=== PATIENT | male | born 1985 | race Caucasian/White ===

== ENCOUNTER 2023-10-07 12:00 | Emergency (ER) | payer SELFPAY ==
[2023-10-07 12:04] VITALS: BP 162/92; PULSE 73; RESP 18; TEMP 36; O2SAT 98
--- NOTE | 2023-10-07 12:17 | ED.GENADUL_ITS ---
Discharge Plan Disposition Patient Disposition: Home Condition: Stable Discharge Details Clinical Impression: Skin lesion, Penile lesion, Hemorrhoid Primary Care Provider: None,None ED Provider: Fernando Hastings Home Meds and New Rx's Prescriptions: New sulfamethoxazole-trimethoprim [Bactrim DS] 800-160 mg tablet 1 tab PO BID Qty: 14 0RF amoxicillin-pot clavulanate 875-125 mg tablet 1 tab PO BID Qty: 14 0RF Discharge Instructions Additional Instructions: Take the antibiotics as directed. You can use Preparation H or generic for your hemorrhoid and also sit in a warm bath for 15 to 20 minutes a few times a day. You can take 600 mg of ibuprofen and 1000 mg Tylenol every 6 hours as needed If you have feel more ill, have severe worsening pain, or new symptoms such as severe abdominal pain return to the emergency department Follow-up with your primary care provider or express care if not better within 1 to 2 weeks HPI General Mode of arrival: ambulatory . Date/Time Provider Initiated Documentation: 10/07/23 12:03 . Limitations to Documentation: no limitations . Information obtained by: patient . History of Present Illness 37 year old M presents to the emergency department with the chief complaint of Lesions on the skin, described as moderate, Patient started experiencing this day(s) (4) and it has been constant. No relieving factors improve symptom(s), No exacerbating factors reported . Patient notes no other symptoms.; denies fever/chills. Patient did receive the following treatments prior to arrival, none Related Data Home Medications Medication Instructions Recorded Confirmed amoxicillin 875 mg-potassium 1 tab PO BID #14 tabs 10/07/23 clavulanate 125 mg tablet sulfamethoxazole 800 1 tab PO BID #14 tabs 10/07/23 mg-trimethoprim 160 mg tablet (Bactrim DS) Previous Rx's Medication Instructions Recorded amoxicillin 875 mg-potassium 1 tab PO BID #14 tabs 10/07/23 clavulanate 125 mg tablet sulfamethoxazole 800 1 tab PO BID #14 tabs 10/07/23 mg-trimethoprim 160 mg tablet (Bactrim DS) Allergies Allergy/AdvReac Type Severity Reaction Status Date / Time acetaminophen Allergy Severe Anaphylaxis Verified 10/07/23 12:07 General Stated Complaint: Cellulitis SEAN: 3 Review of Systems All systems reviewed & are unremarkable except as noted in HPI and below Constitutional Constitutional: Denies chills, Denies fever(s) and Denies weakness Cardiovascular Cardiovascular: Denies chest pain and Denies dyspnea Respiratory Respiratory: Denies cough and Denies dyspnea Gastrointestinal Gastrointestinal: Denies abdominal pain, Denies nausea and Denies vomiting Integumentary/Breasts Skin/Breast: Reports rash Neurologic Neurologic: Denies weakness Exam Const General: no acute distress Orientation: alert HENMT Head: normal to inspection Ears: external ears normal General nose exam: external nose normal Mouth: moist mucous membranes Eyes General: appearance normal, both eyes and all related structures Neck Neck: normal visual inspection Resp Effort & Inspection: normal respiratory effort and able to speak in complete sentences Cardio Rate: regular rate Skin General skin exam: erythema Neuro General: patient alert and patient oriented x3 Extrem General: normal to inspection Psych Mental Status: mental status grossly normal Course Vital Signs Vital signs: Vital Signs Temperature 36.0 C L 10/07/23 12:04 Pulse 73 10/07/23 12:04 Respiratory Rate 18 10/07/23 12:04 Blood Pressure 162/92 H 10/07/23 12:04 Pulse Oximetry 98 10/07/23 12:04 Temperature 36.0 C L 10/07/23 12:04 Pulse 73 10/07/23 12:04 Respiratory Rate 18 10/07/23 12:04 Blood Pressure 162/92 H 10/07/23 12:04 Pulse Oximetry 98 10/07/23 12:04 Pain Level 6 10/07/23 12:04 Medical Decision Making 37-year-old male who denies any chronic medical problems and denies IV drug use, comes in with several days of lesions on his arms and legs. Denies any fevers or severe pain. He has multiple circular scabs on his arms and legs with mild 2 to 3 mm of surrounding erythema, no fluctuance, no crepitus no severe pain. The lesions appear likely due to skin picking the patient denies this. He appears well, doubt sepsis and do not feel any labs or imaging indicated. Will start him on Augmentin and Bactrim, advised to follow-up with primary care provider and return precautions given Patient requested to speak with me again. He states he is noticed to lump on the superior distal portion of his penis for about a week. Denies any discharge, not overly concerned with sexually transmitted diseases. He does h ave a mobile 1 mm nodule in the distal superior anterior penis, no fluctuance or erythema, no discharge from the penis no swelling. Will send RPR and also GC chlamydia testing. Advised to follow-up with his primary care provider advised he will receive a call if positive for any of the test done today Patient also now states he thinks he has a hemorrhoid, he had a lump in his rectum. On rectal exam he does have a 5 mm nonthrombosed hemorrhoid at the 9 o'clock position, no bleeding. Advised to use sitz bath and Preparation H and also to follow-up with his primary care provider Differential Diagnosis Differential Diagnosis: Skin picking, cellulitis Quality:SDOH Health Related Social Needs: No Data to Display PFSH All Active Problems (Updated 10/07/23 @ 12:30 by Fernando Hastings MD) Hemorrhoid (Acute) Penile lesion (Acute) Skin lesion (Acute) Social History Smoking/Tobacco Use Status: Current every day Tobacco Type: cigarettes Smoking risk assessment performed?: Yes Alcohol Intake: current Alcohol Intake frequency: holidays/special occasions only Drug use: Daily Substance use type: marijuana Housing: homeless
[2023-10-07] MEDS: Amoxicillin 875/Clav. 125 TAB PO (12:19)
[2023-10-07] MEDS: Sulfameth/Trimeth DS TAB 1 TAB PO (12:19)
[2023-10-08 10:23] LABS: Syphilis Serology (RPR) Negative (Negative)
[2023-10-09 14:24] LABS: Chlamydia Result Negative (Negative); GC Result Negative (Negative)
== END 2023-10-07 13:20 | disposition home or self-care (01) ==
LOC: ER 12:45
PROVIDERS: Emergency Provider Emergency Medicine
DX: L98.9 Disorder of the skin and subcutaneous tissue, unspecified (principal); N48.9 Disorder of penis, unspecified; K64.4 Residual hemorrhoidal skin tags; F17.210 Nicotine dependence, cigarettes, uncomplicated
CPT/HCPCS: 36415; 87491; 87591; 99283; 86592

== ENCOUNTER 2023-12-05 19:14 | Emergency (ER) | payer SELFPAY ==
[2023-12-05 19:14] VITALS: BP 178/96; PULSE 55; RESP 18; TEMP 36.6; O2SAT 99
--- NOTE | 2023-12-05 19:15 | DI.CT_ITS ---
Exam(s) CT HEAD FACIAL WO EXAM: CT HEAD FACIAL WO CLINICAL HISTORY: Facial injury Left eye. TECHNIQUE: Imaging Protocol: Axial computed tomography images with coronal and sagittal reformatted images were created and reviewed COMPARISON: No exams were available for comparison FINDINGS: CT Head: Ventricles and Extra axial spaces: Normal in size and morphology for the patient's age. Hemorrhage: None. Cerebral parenchyma: Normal. Midline shift: None. Brainstem/Cerebellum: Normal. Calvarium: Normal. Visualized Paranasal sinuses/Mastoids: Clear. Soft Tissues: Unremarkable. CT Face: Facial Bones: There is an acute depressed fracture of the left zygomatic arch. There is an angulate d mildly comminuted fracture of the lateral wall of the left orbit. It extends anteriorly to involve the superior lateral aspect of the orbital wall. There is an acute mildly displaced fracture of the lateral aspect of the left maxillary sinus. It extends superiorly to involve the orbital floor and anteriorly to involve the anterior wall. There is no depression of the orbital floor. No muscle ent rapment is seen. Sinuses and Mastoids: Small fluid levels are seen in the maxillary sinus sinuses bilaterally. There is mild mucosal thickening in the right maxillary sinus. The ethmoid air cells sphenoid sinuses and frontal sinuses are clear as are the mastoid air cells. Globes, extraocular muscles, optic nerves and retrobulbar fat: The globes, extraocular muscles and o ptic nerve appear unremarkable. There is a small amount of air in the retro-orbital fat. Upper aerodigestive tract: Normal. Mandible and bilateral temporomandibular joints: Normal. Soft tissues: There is left periorbital soft tissue swelling. IMPRESSION: 1. No acute intracranial process. 2. Fractures involving the left side medic arch. The fracture is mildly depressed. 3. Fractures involving the anterior and lateral carranza of the left maxilla with extension to involve t he floor of the left orbit which is not depressed. There is a fracture of the lateral orbital wall o n the left. There is no evidence of extraocular muscle entrapment. There is a small amount of air s een in the retro-orbital fat. 4. Left periorbital soft tissue swelling. RADIATION DOSE DELIVERED: 1,641.44mGy.cm Total DLP DATA REPOSITORY: All CT scans at this facility are submitted to the National Radiology Data Registry (NRDR) Dose Index Registry (DIR) with the [employer] (ACR). RADIATION OPTIMIZATION: All CT scans at this facility use at least one of these dose optimization te chniques: automated exposure control; mA and/or kV adjustment per patient size (includes targeted exa ms where dose is matched to clinical indication); or iterative reconstruction.
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
[2023-12-05] MEDS: Ibuprofen 800 MG TAB PO (19:26)
--- NOTE | 2023-12-05 20:02 | DI.VRAD_ITS ---
PROCEDURE INFORMATION: Exam: CT Head Without Contrast Exam date and time: 12/05/2023 7:35 PM Age: 37 years old Clinical indication: Other: Facial injury left eye TECHNIQUE: Imaging protocol: Computed tomography of the head without contrast. COMPARISON: No relevant prior studies available. FINDINGS: Brain: Cerebral sulci show bilateral symmetry with no supratentorial mass or mass effect detected. Brainstem and cerebellum are unremarkable. There is no evidence of acute transcortical infarction or recent intracranial hemorrhage. Cerebral ventricles: Ventricular and cisternal spaces are normal in size and configuration and there is no midline shift or hydrocephalus seen. Paranasal sinuses: Mucosal disease and layering fluid are seen along the margins of the right maxillary sinus with minimal fluid also seen along the posterior left maxillary sinus and other paranasal sinuses grossly clear throughout. Mastoid air cells: Grossly clear bilaterally. Bones: Bony calvarium and skull base are intact. Fractures involve the left zygomatic arch and lateral wall of left orbit and the anterior and posterior carranza of left maxillary sinus adjacent to the zygoma with fracture also extending along the anterolateral floor of the left orbit. Soft tissues: Prominent left periorbital and pre maxillary ecchymosis/edema noted. Small amounts of intraorbital gas also seen on the left side anteriorly and inferiorly. IMPRESSION: 1. No evidence of acute transcortical infarction, recent intracranial hemorrhage or hydrocephalus. No acute intracranial process is detected. 2. Multiple left periorbital and maxillofacial fractures with associated regional soft tissue swelling. Please refer to report from maxillofacial CT of the same day. PROCEDURE INFORMATION: Exam: CT Maxillofacial Without Contrast Exam date and time: 12/05/2023 7:35 PM Age: 37 years old Clinical indication: Other: Facial injury left eye TECHNIQUE: Imaging protocol: Computed tomography of the face without contrast. COMPARISON: No relevant prior studies available. FINDINGS: Orbital cavities: Fractures are seen involving the lateral wall of left orbit and the anterolateral left orbital floor. Small amounts of intraorbital gas are seen on the left side anteriorly and inferiorly and both globes are otherwise intact. Bones: Fractures involve the left zygomatic arch and lateral wall of left orbit and the anterior and posterior carranza of left maxillary sinus adjacent to the zygoma with fracture line also extending along the anterolateral floor of the left orbit. Paranasal sinuses: Paranasal sinuses are clear throughout with no significant mucosal disease or layering fluid detected. Soft tissues: Prominent left periorbital and pre maxillary ecchymosis/edema noted. IMPRESSION: Multiple left periorbital and maxillofacial fractures with associated regional soft tissue swelling/edema as above. Dictated and Authenticated by: Mac Vuong MD. Ordering:ANA Gan MD
== END 2023-12-05 21:17 | disposition home or self-care (01) ==
PROVIDERS: Emergency Provider Registered Nurse Emergency
DX: S02.40FA Zygomatic fracture, left side, initial encounter for closed fracture (principal); S02.842A Fracture of lateral orbital wall, left side, initial encounter for closed fracture; S02.19XA Other fracture of base of skull, initial encounter for closed fracture; F17.210 Nicotine dependence, cigarettes, uncomplicated; Z59.00 Homelessness unspecified; Y04.2XXA Assault by strike against or bumped into by another person, initial encounter
CPT/HCPCS: 99284; 70450; 70486